=== PATIENT | female | born 1980 | race Caucasian/White ===

== ENCOUNTER 2018-10-26 00:40 | Emergency (ER) | payer OTHER ==
[~2018-10-26] VITALS: Ht 167.6 cm; Wt 56.7 kg
[2018-10-26] MEDS ORDERED: ALEVE220 MG PO (00:55)
[2018-10-26] MEDS ORDERED: IBUPROFEN800 MG PO (00:55)
[2018-10-26] MEDS ORDERED: KEFLEX500 MG PO (01:04)
--- OUTSIDE RECORDS SUMMARY | 2018-10-26 01:54 | XMS ---
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 [facility] (12 MO.) [facility] TOTAL 4 NOTE: Visits indicate total known visits. ED/UCC VISIT TRACKING (12 MO.) 10/26/2018 00:40 [facility] [place] TYPE: Emergency COMPLAINT: - DENTAL PAIN 10/06/2018 16:22 [place] TYPE: Emergency DIAGNOSES: - Abscess - Cellulitis of buttock - Cutaneous abscess of buttock 07/26/2018 00:[address] [place] [address] [facility] [place] TYPE: Emergency DIAGNOSES: - Panic Attack - Panic disorder [episodic paroxysmal anxiety] - Anxiety,panic attack 01/01/2018 10:47 [facility] [place] TYPE: Emergency DIAGNOSES: - back pain - Muscle spasm of back - Urinary tract infection, site not specified INPATIENT VISIT TRACKING (12 MO.) No inpatient visits to display in this time frame [email or web address]
== END 2018-10-26 01:20 | disposition home or self-care (01) ==
LOC: ED 00:40
DX: K03.81 Cracked tooth (principal); F17.200 Nicotine dependence, unspecified, uncomplicated; Z88.0 Allergy status to penicillin
CPT/HCPCS: 99282

== ENCOUNTER 2018-11-28 14:52 | Emergency (ER) | payer OTHER ==
[~2018-11-28] VITALS: Ht 170.2 cm; Wt 56.7 kg
--- OUTSIDE RECORDS SUMMARY | ~2018-11-28 | XMS | Clinical Summary ---
Demographics + + + | Address | [address] | | | [place] [address] | + + + | Home Phone | | + + + | Preferred Language | Unknown | + + + | Marital Status | | + + + | Buddhist Affiliation | Unknown | + + + | Race | Unknown | + + + | Ethnic Group | Unknown | + + + Author + + + | Author | [facility] | | | and [place] | + + + | Organization | [facility] | | | and [place] | + + + | Address | Unknown | + + + | Phone | Unavailable | + + + Support + + +---------+ + | Name | Relationship | Address | Phone | + + +---------+ + | Thi Simons | ECON | Unknown | | + + +---------+ + Care Team Providers + +------+ + | Care Medical Representative Name | Role | Phone | + +------+ + | No, Physician | PP | Unavailable | + +------+ + Allergies + + + + + + | Active Allergy | Reactions | Severity | Noted | Comments | | | | | Date | | + + + + + + | Aspirin | Hives | | 01/02/20 | | | | | | 18 | | + + + + + + | Penicillins | Hives | | 01/02/20 | | | | | | 18 | | + + + + + + Medications No known medications Active Problems Not on file Social History + +-------+ +--------+------+ | Tobacco Use | Types | Packs/Day | Years | Date | | | | | Used | | + +-------+ +--------+------+ | Former Smoker | | | | | + +-------+ +--------+------+ + +---+---+---+ | Smokeless Tobacco: | | | | | Never Used | | | | + +---+---+---+ + + | Comments: 2 weeks ago | + + + + +---------+ + | Alcohol Use | Drinks/We | oz/Week | Comments | | | ek | | | + + +---------+ + | No | | | | + + +---------+ + + + + | Sex Assigned at | Date Recorded | | | | + + + | Not on file | | + + + + + + + | Job Start Date | Occupation | Industry | + + + + | Not on file | Not on file | Not on file | + + + + + + + + | Travel History | Travel Start | Travel End | + + + + + + | No recent travel history available. | + + Last Filed Vital Signs + + + + | Vital Sign | Reading | Time Taken | + + + + | Blood Pressure | 99/61 | 07/26/2018304 PST | + + + + | Pulse | 96 | 07/26/2018304 PST | + + + + | Temperature | 36.6 C (97.8 F) | 07/26/2018157 PST | + + + + | Respiratory Rate | 18 | 07/26/2018304 PST | + + + + | Oxygen Saturation | 95% | 07/26/2018304 PST | + + + + | Inhaled Oxygen | - | - | | Concentration | | | + + + + | Weight | 53.5 kg (118 lb) | 07/26/2018124 PST | + + + + | Height | 167.6 cm (5' 6") | 07/26/2018124 PST | + + + + | Body Mass Index | 19.05 | 07/26/2018124 PST | + + + + Plan of Treatment + + + + + | Health Maintenance | Due Date | Last Done | Comments | + + + + + | Vaccine: | | | | | Dtap/Tdap/Td (1 - | 0 | | | | Tdap) | | | | + + + + + | Cervical Cancer | | | | | Screening (Pap) | 1 | | | + + + + + | Vaccine: Influenza | | | | | (Season Ended) | 9 | | | + + + + + Results Not on filefrom Last 3 Months Insurance +---------+--------+ +--------+ +---------+--------+ | Payer | Benefi | Subscriber | Effect | Phone | Address | Type | | | t Plan | ID | t[place] | | | | | | / | | Dates | | | | | | Group | | | | | | +---------+--------+ +--------+ +---------+--------+ | | TRICAR | [id number] | [birth year] | [phone] | | [employer] | | | [address] [facility] | | 18-Pre | 0 | | ity | | | | | sent | | | | | | HUMANA | | | | | | | | | | | | | | | | MILITA | | | | | | | | RY | | | | | | +---------+--------+ +--------+ +---------+--------+ + +--------+ +--------+ + + | Guarantor Name | Accoun | Relation to | Date | Phone | Billing Address | | | t Type | Patient | of | | | | | | | | | | + +--------+ +--------+ + + | Minnie Witt | Person | Self [birth year] | [address] | | | al/Fam | | 1980 | [phone] | [place] | | | [place] | | | 4 (Home) | [phone] | + +--------+ +--------+ + + Advance Directives Patient has advance care planning documents on file. For more information, please contact:[facility] [place] [address]
--- OUTSIDE RECORDS SUMMARY | ~2018-11-28 | XMS | Clinical Summary ---
Demographics + + + | Address | [address] | | | [place] [address] | + + + | Home Phone | | + + + | Preferred Language | Unknown | + + + | Marital Status | | + + + | Restorationism Affiliation | Unknown | + + + | Race | Unknown | + + + | Ethnic Group | Unknown | + + + Author + + + | Author | [facility] | | | and [place] | + + + | Organization | [facility] | | | and [...] Team Providers + +------+ + | Care Chief Security And Safety Officer Name | Role | Phone | + [...] +---------+--------+ +--------+ +---------+--------+ | | TRICAR | [id number] | [birth year] | [phone] | | [place] [...] Self | [birth year] | [address] | | | al/Fam | | 1980 | [phone] | [place] | | | [place] | | | 4 (Home) | [phone] | + +--------+ +--------+ + + Advance Directives Patient has advance care planning documents on file. For more information, please contact:[facility] [place] [address]
[~2018-11-28 14:52] MED LIST: ALEVE220 MG PO; IBUPROFEN800 MG PO; KEFLEX500 MG PO
[2018-11-28] MEDS ORDERED: CLINDAMYCIN HC300 MG PO (16:43)
== END 2018-11-28 16:50 | disposition home or self-care (01) ==
LOC: ED 14:52
DX: N76.4 Abscess of vulva (principal); F17.200 Nicotine dependence, unspecified, uncomplicated; Z88.0 Allergy status to penicillin; Z88.5 Allergy status to narcotic agent; Z88.6 Allergy status to analgesic agent; Z90.49 Acquired absence of other specified parts of digestive tract
CPT/HCPCS: 81001; 84703; 99283